=== PATIENT | male | born 1980 | race Caucasian/White ===

== ENCOUNTER 2019-01-18 05:00 | Inpatient (IN) | payer OTHER ==
[~2019-01-18] VITALS: Ht 177.8 cm; Wt 118.2 kg
[~2019-01-18 05:00] MED LIST: ALPR1TAB7 PO; IBUP-2071 PO
[2019-01-18] MEDS ORDERED: CeFAZolin 2 GM/DEXTROSE 50 ML IV ONE ×2 (05:02→07:00)
[2019-01-18] MEDS ORDERED: RINGERS SOLUTION,LACTATED 1,000 ML IV ONE ×3 (05:02→07:51)
[2019-01-18 06:01] LABS: BASOPHILS % (AUTO) 0.4 % (0.0-2.0); EOSINOPHILS % (AUTO) 1.6 % (1.0-6.0); HEMOGLOBIN 16.2 g/dL (13.5-17.5); LYMPHOCYTES # (AUTO) 3.3 K/uL (1.0-4.8); LYMPHOCYTES % (AUTO) 33.7 % (22.0-44.0); MEAN CORPUSCULAR HGB CONC 33.9 G/dL (31.0-37.0); MEAN CORPUSCULAR VOLUME 86 fL (80-100); MONOCYTES # (AUTO) 0.7 K/uL (0.1-1.0); MONOCYTES % (AUTO) 6.8 % (2.0-9.0); NEUTROPHILS # (AUTO) 5.7 K/uL (1.8-7.7); NEUTROPHILS % (AUTO) 57.5 % (40.0-70.0); PLATELET COUNT (AUTO) 389 K/uL (150-450); RED CELL DISTRIBUTION WIDTH 13.7 % (11.5-14.5)
[2019-01-18 06:10] LABS: ANION GAP 8 mmol/L (8-16); CARBON DIOXIDE 28 mmol/L (22-29); CHLORIDE 103 mmol/L (98-107); CREATININE 0.94 mg/dL (0.60-1.30); GLOMERULAR FILTR. RATE CALC > 60 mL/min (>60); GLUCOSE,RANDOM 103 mg/dL (70-110); POTASSIUM 4.1 mmol/L (3.5-5.1); SODIUM SERUM 139 mmol/L (136-145); UREA NITROGEN, BLOOD 9 mg/dL (7-18)
[2019-01-18 06:22] LABS: ALANINE AMINOTRANSFERASE 143 U/L (12-78); ALBUMIN 3.6 g/dL (3.4-5.0); ALKALINE PHOSPHATASE 46 U/L (46-116); ASPARTATE AMINOTRANSFERASE 62 U/L (15-37); BILIRUBIN,TOTAL 0.3 mg/dL (0.1-1.0); TOTAL PROTEIN, SERUM 7.5 g/dL (6.4-8.2)
[2019-01-18] MEDS ORDERED: MAG HYDROX/AL HYDROX/SIMETH 30 ML SUSP UDCUP PO PRN (06:45)
[2019-01-18] MEDS ORDERED: DEXAMETHASONE SOD PHOS 4 MG/ML VIAL IVP PRN (06:45)
[2019-01-18] MEDS ORDERED: DiphenhydrAMINE HCL 50 MG/ML VIAL IVP PRN (06:45)
[2019-01-18] MEDS ORDERED: BENZOCAINE/MENTHOL LOZENGE PO PRN (06:45)
[2019-01-18] MEDS ORDERED: ZOLPIDEM TARTRATE 10 MG TABLET PO PRN (06:45)
[2019-01-18] MEDS ORDERED: CYCLOBENZAPRINE HCL 10 MG TABLET PO PRN (07:45)
[2019-01-18] MEDS ORDERED: HYDROmorphone 2 MG/ML SYRINGE IVP PRN (07:45)
[2019-01-18] MEDS ORDERED: ONDANSETRON HCL 4 MG/2 ML VIAL IVP PRN (07:45)
[2019-01-18] MEDS ORDERED: OxyCODONE HCL 5 MG IR TABLET PO PRN (07:45)
[2019-01-18] MEDS ORDERED: ZOLPIDEM TARTRATE 5 MG TABLET PO PRN (07:45)
[2019-01-18] MEDS ORDERED: OxyCODONE HCL 10 MG IR TABLET PO PRN (08:23)
[2019-01-18 10:54] VITALS: BP 152/109
[2019-01-18] MEDS: MORPHINE SULFATE 2 MG/ML SYRINGE IVP PRN ×3 (11:09→21:08)
[2019-01-18 11:10] VITALS: BP 145/108
[2019-01-18] MEDS ORDERED: ROCURONIUM BROMIDE 10 MG/ML 5 ML VIAL IVP ONE ×2 (12:00)
[2019-01-18] MEDS ORDERED: ONDANSETRON HCL 4 MG/2 ML VIAL IVP ONE ×2 (12:00)
[2019-01-18] MEDS ORDERED: DEXAMETHASONE SOD PHOS 4 MG/ML VIAL IVP ONE ×2 (12:00)
[2019-01-18] MEDS ORDERED: KETAMINE HCL 50 MG/ML 10 ML VIAL IVP ONE (12:00)
[2019-01-18] MEDS ORDERED: LIDOCAINE/PF 2% 5 ML VIAL INJ ONE ×2 (12:00)
[2019-01-18] MEDS ORDERED: FentaNYL CITRATE-PF 100 MCG/2 ML VIAL IVP ONE (12:00)
[2019-01-18] MEDS ORDERED: SUCCINYLCHOLINE CHLORIDE 20 MG/ML 10 ML VIAL IVP ONE ×2 (12:00)
[2019-01-18] MEDS ORDERED: PROPOFOL 1% 20 ML VIAL IVP ONE ×2 (12:00)
[2019-01-18] MEDS ORDERED: HYDROmorphone 2 MG/ML SYRINGE IVP ONE (12:00)
[2019-01-18] MEDS ORDERED: MIDAZOLAM HCL 2 MG/2 ML VIAL IVP ONE (12:00)
[2019-01-18 12:06] LABS: GLUCOMETER DEV NAME(LOC) 6N.2; GLUCOSE,POINT OF CARE 129 MG/DL (70-110)
[2019-01-18] MEDS: ACETAMINOPHEN 1000 MG/ISO-OSM 100 ML IV SCH ×2 (13:08→18:49)
[2019-01-18] MEDS: DOCUSATE SODIUM 100 MG CAPSULE PO SCH ×2 (13:09→21:08)
[2019-01-18] MEDS ORDERED: INFLUENZA VIRUS VACCINE QVS 2019-20 (3YR+)/PF 60 MCG/0.5 ML SYRINGE IM ONE (13:30)
[2019-01-18 15:20] VITALS: BP 145/96
[2019-01-18] MEDS: CYCLOBENZAPRINE HCL 10 MG TABLET PO PRN (16:04)
[2019-01-18 20:24] VITALS: BP 147/71
[2019-01-19 00:16] VITALS: BP 132/85
[2019-01-19] MEDS: ACETAMINOPHEN 1000 MG/ISO-OSM 100 ML IV SCH (01:05)
[2019-01-19] MEDS: MORPHINE SULFATE 2 MG/ML SYRINGE IVP PRN ×2 (04:41→11:01)
[2019-01-19 05:10] VITALS: BP 153/83
[2019-01-19] MEDS ORDERED: HYDROCODONE/ACETAMINOPHEN 10-325 MG TABLET PO PRN (07:00)
[2019-01-19 08:10] VITALS: BP 120/93
[2019-01-19] MEDS: DOCUSATE SODIUM 100 MG CAPSULE PO SCH (08:22)
[2019-01-19] MEDS: CYCLOBENZAPRINE HCL 10 MG TABLET PO PRN (08:22)
[2019-01-19 11:42] VITALS: BP 132/99
== END 2019-01-19 12:50 | disposition home or self-care (01) | DRG 473 ==
LOC: 6N 05:00 → 4E 10:55
PROVIDERS: ADMIT Orthopaedic Surgery Orthopaedic Surgery of the Spine; ATTEND Orthopaedic Surgery Orthopaedic Surgery of the Spine
PROC: 0RB30ZZ Excision of Cervical Vertebral Disc, Open Approach (ICD-10-PCS; 2019-01-18)
PROC: 4A11X4G Monitoring of Peripheral Nervous Electrical Activity, Intraoperative, External Approach (ICD-10-PCS; 2019-01-18)
PROC: 0RG2070 Fusion of 2 or more Cervical Vertebral Joints with Autologous Tissue Substitute, Anterior Approach, Anterior Column, Open Approach (ICD-10-PCS; principal; 2019-01-18 07:00)
DX: M48.02 Spinal stenosis, cervical region (principal)
CPT/HCPCS: 86850; 86900; 86901; 87081; 93005; 97161; 97165; 97530; 97535; G0378; J0131; J0330; J0690; J1100; J1170; J2250; J2270; J2405; J2704; J3010; J3490; J7120